=== PATIENT | female | born 1970 ===

== ENCOUNTER → 2019-02-11 | Outpatient (REF) ==
--- NOTE | 2019-02-11 11:59 | REP ---
LUMBOSACRAL SPINE, AP AND LATERAL: Three AP and lateral views of the lumbosacral spine demonstrate no compression fracture or malalignment. There is normal lumbar lordosis with no evidence of spondylolysis or spondylolisthesis. There is slight disc space narrowing at L4-5 and L5-S1 with sclerosis and spurring at the posterior facets at those levels, as well as at L3-4. The posterior elements are intact. There is mild narrowing and sclerosis at the sacroiliac joints. Metallic clips are seen in the right upper quadrant of the abdomen. IMPRESSION: Degenerative changes as discussed above, most significantly at the L4-5, L5-S1 levels. Electronically Signed by Ascencion Huitron MD 02/11/2019 04:31 P
--- NOTE | 2019-02-11 12:24 | REP ---
Left knee four views: There are no comparisons. There is joint space narrowing and osteophyte formation of the medial and patellofemoral compartments compatible with osteoarthritis. There is mild osteoarthritis of the lateral compartment. There is a large mottled calcification in the suprapatellar pouch and there are mottled calcifications superimposed over the medial compartment that appear to be predominantly posteriorly on the lateral view. These may represent synovial or ligamentous calcifications or combination. Impression: Osteoarthritis. Calcifications as described. Consider follow-up MRI for evaluation of the synovium, including these calcifications. Electronically Signed by Ascencion Dawson MD 02/11/2019 12:16 P
== END ==
LOC: M SMT 10:33
PROVIDERS: ATTEND Internal Medicine
DX: M51.36 Other intervertebral disc degeneration, lumbar region (principal)